=== PATIENT | male | born 1985 | race Caucasian/White ===

== ENCOUNTER 2017-06-25 08:18 | Emergency (ER) | payer BC, SELFPAY | END 2017-06-25 09:28 | disposition home or self-care (01) | LOC: ERS 08:18 | DX: L01.00 Impetigo, unspecified (principal); I12.0 Hypertensive chronic kidney disease with stage 5 chronic kidney disease or end stage renal disease; N18.6 End stage renal disease | CPT/HCPCS: 99282 ==

== ENCOUNTER 2017-08-25 12:08 | Emergency (ER) | payer SELFPAY ==
[2017-08-25] MEDS ORDERED: Azithromycin 250 MG TAB ONE (13:18)
[2017-08-25] MEDS ORDERED: Lidocaine 1% PF 5 ML VIAL ONE (13:21)
[2017-08-25] MEDS ORDERED: cefTRIAXone\\ROCEPHIN 250 MG VIAL ONE (13:21)
[2017-08-25] MEDS ORDERED: cefTRIAXone\\ROCEPHIN 250 MG VIAL IM SCH (13:30)
[2017-08-25 13:33] LABS: Bilirubin Negative (Negative); Blood, Urine Negative (Negative); Clarity CLEAR (Clear); Glucose, Urine (Dipstick) Negative (Negative); Leukocyte Moderate (Negative); Nitrite Negative (Negative); Protein, Urine (Dipstick) Negative (Neg-Trace); Specific Gravity, Urine 1.018 (1.002-1.036); Urobilinogen 0.2 mg/dL (0.2-1.0)
[2017-08-25 13:36] LABS: Bacteria/HPF None Seen HPF (None Seen); Hyaline Casts/LPF 0-3 HYALINE CAST LPF (0-3 Hyaline); Pathc Cast-AUWi Flag 0.29 (0-2.49); RBC/HPF 0-3 HPF (0-3)
[2017-08-29 11:22] LABS: Chlamydia trachomatis by NAA Negative (Negative)
== END 2017-08-25 14:06 | disposition home or self-care (01) ==
LOC: ERS 12:08
DX: R30.0 Dysuria (principal); R36.9 Urethral discharge, unspecified; I12.0 Hypertensive chronic kidney disease with stage 5 chronic kidney disease or end stage renal disease; N18.6 End stage renal disease; F17.210 Nicotine dependence, cigarettes, uncomplicated
CPT/HCPCS: 81003; 81015; 87086; 87491; 87591; 96372; 99406; J0696; J2001

== ENCOUNTER 2019-03-24 17:00 | Emergency (ER) | payer SELFPAY ==
[~2019-03-24 17:00] MED LIST: Iopamidol-370 76% 500 ML 1 ML ONE
[2019-03-24] MEDS ORDERED: Ondansetron PF 4 MG/2 ML Vial ONE (18:48)
[2019-03-24 18:51] LABS: #Eosinphils 0.1 thou/uL (0.0-0.7); #Lymphocytes 1.7 thou/uL (1.20-3.40); #Monocytes 0.4 thou/uL (0.11-0.59); #Neutrophils 4.6 thou/uL (1.40-6.50); %Basophils 0.7 % (0.0-1.0); %Eosinophils 0.9 % (0.0-10.0); %Lymphocytes 24.5 % (21.0-51.0); %Monocytes 6.5 % (0.0-10.0); %Neutrophils 67.3 % (42.0-75.0); Hemoglobin 14.3 g/dL (14.0-18.0); Mean Corpuscular HGB CONC 33.8 g/dL (32.0-36.0); Mean Corpuscular Hemoglobin 30.5 pg (27.0-31.0); Mean Corpuscular Volume 90.1 fL (78.0-98.0); Mean Platelet Volume 8.1 fL (7.4-10.4); Platelet Count 177 thou/uL (130-400); RBC Distribution Width 12.7 % (11.5-14.5); Red Blood Cell (RBC) Count 4.69 mill/uL (4.70-6.10); White Blood Cell (WBC) Count 6.8 thou/uL (4.8-10.8)
[2019-03-24 18:59] LABS: Bilirubin Negative (Negative); Blood, Urine Negative (Negative); Clarity Clear (Clear); Glucose, Urine (Dipstick) Normal (Negative); Leukocyte Negative Leu/uL (Negative); Nitrite Negative (Negative); Protein, Urine (Dipstick) 20 mg/dL (Neg-Trace); Urobilinogen Normal mg/dL (Less than 2)
[2019-03-24 19:13] LABS: ALT (SGPT) 29 U/L (8-55); AST (SGOT) 34 U/L (5-34); Albumin 4.4 g/dL (3.5-5.0); Alkaline Phosphatase 19 U/L (40-110); Anion Gap 14 mmol/L (10-20); BUN (Urea Nitrogen) 11 mg/dL (8.9-20.6); Bilirubin, Total 0.9 mg/dL (0.2-1.2); Calc. Creatinine Clearance 0 mL/min (70-130); Calcium 9.2 mg/dL (7.8-10.44); Carbon Dioxide 27 mmol/L (22-29); Chloride 104 mmol/L (98-107); Estimated GFR-MDRD 70; Globulin 2.5 g/dL (2.4-3.5); Glucose 128 mg/dL (70-105); Lipase 21 U/L (8-78); Potassium 3.5 mmol/L (3.5-5.1); Protein, Total 6.9 g/dL (6.0-8.3); Sodium 141 mmol/L (136-145)
--- NOTE | 2019-03-24 21:17 | CT ---
CT ABDOMEN AND PELVIS WITH IV CONTRAST: HISTORY: Vomiting. Diarrhea. Epigastric pain. Left flank pain. FINDINGS: The lung bases are clear. The liver, spleen, pancreas, adrenal glands and left kidney are normal. The re is a tiny nonobstructing calculus in the inferior pole of the right kidney. No free air, free fluid or lymphadenopathy is seen in the abdomen or pelvis. The small bowel loops ar e not abnormally dilated. A normal appearing appendix is present. IMPRESSION: 1. No CT evidence of appendicitis. 2. Nonobstructing tiny right renal calculus. POS: OFF
== END 2019-03-24 21:47 | disposition home or self-care (01) ==
LOC: ERS 17:00
DX: R10.13 Epigastric pain (principal); R19.7 Diarrhea, unspecified; R11.2 Nausea with vomiting, unspecified; I12.0 Hypertensive chronic kidney disease with stage 5 chronic kidney disease or end stage renal disease; N18.6 End stage renal disease; Z87.891 Personal history of nicotine dependence
CPT/HCPCS: 74177; 80053; 81003; 83690; 85025; 96361; 96374; J2405; Q9967

== ENCOUNTER 2019-10-25 08:23 | Emergency (ER) | payer SELFPAY ==
[2019-10-25] MEDS ORDERED: Naproxen 500 MG TAB ONE (08:43)
--- NOTE | 2019-10-25 08:54 | RAD ---
RIGHT FOOT 2 VIEWS: INDICATION: Injury. FINDINGS: Oblique views should be obtained if there is a question of fracture. The tarsals, metatarsals, and phalanges appear intact on the 2-view study. No fracture identified. IMPRESSION: No acute finding. POS: AGW
== END 2019-10-25 09:02 | disposition home or self-care (01) ==
LOC: ERS 08:23
DX: S93.601A Unspecified sprain of right foot, initial encounter (principal); J02.9 Acute pharyngitis, unspecified; I12.0 Hypertensive chronic kidney disease with stage 5 chronic kidney disease or end stage renal disease; N18.6 End stage renal disease; Z87.891 Personal history of nicotine dependence; Z79.899 Other long term (current) drug therapy; X58.XXXA Exposure to other specified factors, initial encounter

== ENCOUNTER 2020-05-04 22:36 | Emergency (ER) | payer OTHER, SELFPAY ==
[2020-05-04] MEDS ORDERED: Boostrix 0.5 ML (Tdap) VIAL ONE (23:18)
[2020-05-04] MEDS ORDERED: Lidocaine 1% PF 5 ML VIAL ONE (23:22)
--- NOTE | 2020-05-05 00:01 | CT ---
Exam: Head CT without contrast HISTORY: Trauma. Left eyebrow laceration. Scalp laceration. Fall. COMPARISON: 04/21/2020 FINDINGS: Hemorrhage: No intraparenchymal hemorrhage or extra-axial hematoma. Brain parenchyma: Cortical diego-white matter differentiation is preserved. No mass effect or midline shift. Basilar cisterns are patent. Ventricular system: Ventricles and sulci are patent and symmetric. Calvarium: Intact. Sinuses and mastoid air cells: Adequate aeration. Soft tissues: Minimal left supraorbital hematoma. IMPRESSION: No intracranial post traumatic sequelae.
--- NOTE | 2020-05-05 00:03 | CT ---
Exam: CT cervical spine without contrast HISTORY: Trauma. Pain. COMPARISON: None FINDINGS: No craniocervical dissociation. Appropriate alignment of the lateral masses of C1 and C2. Intact odon toid process Appropriate alignment of the facets. Straightening of normal cervical lordosis is presumed to be due to patient position, muscle spasm or cervical collar. Soft tissue neck structures: No mass, lymphadenopathy or hematoma. No prevertebral soft tissue swelli ng. Upper mediastinum and lung apices: Unremarkable Central spinal canal: Neural foramina and central spinal canal are patent. Evaluation is limited by t echnique Vertebral bodies: Cervical spine vertebral body height is maintained. No fracture. IMPRESSION: 1. No cervical spine fracture 2. Straightening of cervical lordosis as above. If there is concern for ligamentous injury, consider MRI.
[2020-05-05] MEDS ORDERED: Bacitracin 1 PK ONE (00:40)
== END 2020-05-05 00:48 ==
LOC: ERS 22:36
DX: S01.01XA Laceration without foreign body of scalp, initial encounter (principal); S01.112A Laceration without foreign body of left eyelid and periocular area, initial encounter; I12.0 Hypertensive chronic kidney disease with stage 5 chronic kidney disease or end stage renal disease; N18.6 End stage renal disease; F10.129 Alcohol abuse with intoxication, unspecified; Z23 Encounter for immunization
CPT/HCPCS: 12002; 70450; 72125; 90471; 90715

== ENCOUNTER 2020-12-17 21:22 | Emergency (ER) | payer SELFPAY ==
[2020-12-17 21:56] LABS: #Eosinphils 0.1 thou/uL (0.0-0.7); #Monocytes 0.7 thou/uL (0.11-0.59); #Neutrophils 2.6 thou/uL (1.40-6.50); %Basophils 0.6 % (0.0-1.0); %Lymphocytes 46.8 % (21.0-51.0); %Monocytes 10.5 % (0.0-10.0); %Neutrophils 40.1 % (42.0-75.0); Hemoglobin 13.2 g/dL (14.0-18.0); Mean Corpuscular HGB CONC 34.1 g/dL (32.0-36.0); Mean Corpuscular Hemoglobin 33.7 pg (27.0-31.0); Mean Corpuscular Volume 98.9 fL (78.0-98.0); Mean Platelet Volume 7.2 fL (7.4-10.4); Platelet Count 227 thou/uL (130-400); RBC Distribution Width 13.6 % (11.5-14.5); Red Blood Cell (RBC) Count 3.93 mill/uL (4.70-6.10); White Blood Cell (WBC) Count 6.5 thou/uL (4.8-10.8)
[2020-12-17 22:17] LABS: Acetaminophen Less than 6.0 mcg/mL (10.0-30.0); Alcohol 374 mg/dL (Less than 10); Salicylate Less than 8.0 mg/dL (15.0-30.0)
[2020-12-17 22:18] LABS: ALT (SGPT) 65 U/L (8-55); AST (SGOT) 62 U/L (5-34); Albumin 4.1 g/dL (3.5-5.0); Alkaline Phosphatase 23 U/L (40-110); Anion Gap 14 mmol/L (10-20); BUN (Urea Nitrogen) 14 mg/dL (8.9-20.6); Bilirubin, Total 0.3 mg/dL (0.2-1.2); Calc. Creatinine Clearance 0 mL/min (70-130); Calcium 9.6 mg/dL (7.8-10.44); Carbon Dioxide 24 mmol/L (22-29); Chloride 109 mmol/L (98-107); Globulin 3.4 g/dL (2.4-3.5); Glucose 148 mg/dL (70-105); Protein, Total 7.5 g/dL (6.0-8.3); Sodium 143 mmol/L (136-145)
[2020-12-17] MEDS ORDERED: levETIRAcetam in NS 100 ML ONE (22:29)
[2020-12-17] MEDS ORDERED: Haloperidol Lactate 5 MG/ML VIAL ONE (22:51)
[2020-12-17] MEDS ORDERED: diphenhydrAMINE 50 MG/ML VIAL ONE (22:51)
[2020-12-17] MEDS ORDERED: Lorazepam 2 MG/ML VIAL ONE (22:51)
[2020-12-17 23:43] LABS: Bilirubin Negative (Negative); Blood, Urine Negative (Negative); Clarity Clear (Clear); Glucose, Urine (Dipstick) Normal (Negative); Ketone, Urine Negative (Negative); Leukocyte Negative Leu/uL (Negative); Nitrite Negative (Negative); Protein, Urine (Dipstick) 20 mg/dL (Neg-Trace); Specific Gravity, Urine 1.014 (1.002-1.036); Urobilinogen Normal mg/dL (Less than 2); pH, Urine 5.5 (5.0-9.0)
[2020-12-17 23:53] LABS: Amphetamine Not Detected (NotDetected); Barbiturates Screen Not Detected (NotDetected); Benzodiazepine Screen Detected (NotDetected); Cocaine Metabolite Screen Not Detected (NotDetected); Methadone Not Detected (NotDetected); Methamphetamine Not Detected (NotDetected); Opiate Screen Not Detected (NotDetected); Oxycodone Screen Not Detected (NotDetected); Phencyclidine (PCP) Not Detected (NotDetected); THC/Cannabinoid Screen Not Detected (NotDetected); Tricyclic Screen Not Detected (NotDetected)
== END 2020-12-18 07:20 | disposition home or self-care (01) ==
LOC: ERS 21:22
DX: G40.909 Epilepsy, unspecified, not intractable, without status epilepticus (principal); F10.129 Alcohol abuse with intoxication, unspecified; I10 Essential (primary) hypertension; Z79.899 Other long term (current) drug therapy
CPT/HCPCS: 80053; 80306; 80307; 81003; 85025; 93005; 96365; 96366; 96372; J1200; J1630; J1953; J2060